=== PATIENT | male | born 1950 | race African-American/Black ===

== ENCOUNTER 2023-09-28 04:41 | Day surgery (SDC) | payer BC, OTHER ==
[2023-09-24 08:33] VITALS: BMI 34.0
[2023-09-28 07:03] VITALS: BP 151/77; PULSE 59; RESP 18; TEMP 97.7
[2023-09-28] MEDS ORDERED: GENTAMICIN SO4 80 MG/2 ML VIAL ONE (07:57)
== END 2023-09-28 09:24 | disposition home or self-care (01) ==
LOC: JASU-SURG 04:41
PROVIDERS: ATTEND Urology
DX: Z53.8 Procedure and treatment not carried out for other reasons (principal)
CPT/HCPCS: 82962

== ENCOUNTER 2023-10-12 04:16 | Day surgery (SDC) | payer BC, OTHER ==
[2023-10-08 09:59] VITALS: BMI 33.9
[2023-10-12] MEDS ORDERED: MIDAZOLAM HCL 2 MG/2 ML SINGLE DOSE VIAL ONE (07:41)
[2023-10-12] MEDS ORDERED: PROPOFOL 20 ML ONE ×2 (07:41→08:47)
[2023-10-12] MEDS ORDERED: GENTAMICIN SO4 80 MG/2 ML VIAL ONE ×3 (07:50→08:20)
[2023-10-12] MEDS ORDERED: VANCOMYCIN 1,000 MG VIAL (RESTRICTED TO ID ONLY) ONE ×3 (07:50→08:19)
[2023-10-12] MEDS: GENTAMICIN SO4 80 MG/2 ML VIAL IVPB ONE ×2 (08:34→08:41)
[2023-10-12] MEDS: VANCOMYCIN 1,000 MG VIAL (RESTRICTED TO ID ONLY) IVPB ONE ×2 (08:34→08:42)
[2023-10-12] MEDS ORDERED: SUCCINYLCHOLINE CHLORIDE 200 MG/10 ML SYRINGE ONE (08:54)
[2023-10-12] MEDS ORDERED: oxyCODONE HCL 5 MG TABLET PO PRN (10:20)
[2023-10-12] MEDS ORDERED: LACTATED RINGERS SOLUTION 1,000 ML IV SCH (10:30)
[2023-10-12 13:01] VITALS: RESP 18
[2023-10-12 16:11] VITALS: BP 122/62; PULSE 60; TEMP 97
== END 2023-10-12 16:29 | disposition home or self-care (01) ==
LOC: JASU-SURG 04:16
PROVIDERS: ATTEND Urology
PROC: 0VUS0JZ Supplement Penis with Synthetic Substitute, Open Approach (ICD-10-PCS; principal; 2023-10-12 08:00)
DX: N52.8 Other male erectile dysfunction (principal)
CPT/HCPCS: 54405; C1813; 82962; 94760